=== PATIENT | female | born 1995 | race Caucasian/White ===

== ENCOUNTER 2020-01-19 21:49 | Observation (INO) | payer SELFPAY ==
[~2020-01-19] VITALS: Ht 167.6 cm; Wt 62.6 kg
--- NOTE | 2020-01-19 22:15 | NUR ---
ED Nurse Note: Recieved pt from home, here ith c/o severe abdominal pain x 3 days, pt hs hx of ovarian cancer and states she was informed by PMD to come to ED when pain got worse, pain rated at 10/10 and sharp, pt denies CP, SOB and also has mild nausea, no emesis, pt immediately gowned, urine colected and placed on cardiac monitoring, will resume care as ordered and continue to closely monitor.
[2020-01-19] MEDS ORDERED: HYDROmorphone 1mg/ml Carpuject IVP ONE (22:30)
[2020-01-19 22:45] LABS: APPEARANCE,URINE CLEAR; BILIRUBIN, URINE NEGATIVE (NEGATIVE); COLOR,URINE PALE YELLOW; GLUCOSE, URINE (UA) NEGATIVE (NEGATIVE); KETONES,URINE NEGATIVE (NEGATIVE); LEUKOCYTE ESTERASE ,URINE NEGATIVE (NEGATIVE); NITRITE,URINE NEGATIVE (NEGATIVE); PH,URINE 6.5 (4.5-8.0); PROTEIN,URINE NEGATIVE (NEGATIVE); UROBILINOGEN,URINE NORMAL MG/DL (0.0-1.0)
[2020-01-19 23:00] VITALS: BP 122/67
[2020-01-19 23:03] LABS: BASOPHILS % (AUTO) 1.4 % (0.0-2.0); EOSINOPHILS % (AUTO) 3.7 % (0.0-3.0); HEMATOCRIT 39.5 % (37.0-47.0); HEMOGLOBIN 13.4 G/DL (12.0-16.0); LYMPHOCYTES % (AUTO) 22.4 % (20.0-45.0); MEAN CORPUSCULAR VOLUME 88 FL (80-99); MONOCYTES % (AUTO) 7.3 % (1.0-10.0); NEUTROPHILS % (AUTO) 65.2 % (45.0-75.0); PLATELET COUNT 256 K/UL (150-450); RED BLOOD COUNT 4.51 M/UL (4.20-5.40); RED CELL DISTRIBUTION WIDTH 13.9 % (11.6-14.8); WHITE BLOOD COUNT 8.3 K/UL (4.8-10.8)
--- NOTE | 2020-01-19 23:11 | Emergency Room Report ---
History of Present Illness General Chief Complaint: Abdominal Pain Source: Patient Present Illness HPI 24-year-old female presents to ED for abdominal pain. States she is been having this pain for the last 3 weeks. Pain localized to right lower abdomen. 10 out of 10, sharp, nonradiating. States she has had on and off fevers. States she was having diarrhea as well. Was seen here previously for similar pain. History of ovarian cancer. Is currently being managed for that. Denies chest pain or shortness of breath. Denies cough congestion. No other aggravating relieving factors. Denies any other associated symptoms Allergies: Coded Allergies: KETOROLAC (Verified Allergy, Intermediate, Rash, 01/19/20) MORPHINE (Verified Allergy, Intermediate, Rash, 01/19/20) COVID-19 Screening Contact w/high risk pt: No Experienced COVID-19 symptoms?: Yes COVID-19 Testing performed ONION TIER: No Patient History Past Medical History: other - ovarian cancer Past Surgical History: none Pertinent Family History: none Social History: Denies: smoking, alcohol use, drug use Last Menstrual Period: 08/14 Now: No : 1 Para: 0 Immunizations: UTD Reviewed Nursing Documentation: PMH: Agreed; PSxH: Agreed Nursing Documentation-PMH Hx Cancer: Yes - ovarian, remission x 4 months Review of Systems All Other Systems: negative except mentioned in HPI Physical Exam Vital Signs Date Time Temp Pulse Resp B/P (MAP) Pulse Ox O2 Delivery O2 Flow Rate FiO2 01/19/20 21:51 Room Air Sp02 EP Interpretation: reviewed, normal General Appearance: no apparent distress, alert, GCS 15, non-toxic Head: normocephalic, atraumatic Eyes: bilateral eye normal inspection, bilateral eye PERRL ENT: hearing grossly normal, normal pharynx, no angioedema, normal voice Neck: full range of motion, supple/symm/no masses Respiratory: chest non-tender, lungs clear, normal breath sounds, speaking full sentences Cardiovascular #1: regular rate, rhythm, no edema Cardiovascular #2: 2+ carotid (R), 2+ carotid (L), 2+ radial (R), 2+ radial (L) , 2+ dorsalis pedis (R), 2+ dorsalis pedis (L) Gastrointestinal: normal bowel sounds, soft, non-distended, no guarding, no rebound, tenderness Rectal: deferred Genitourinary: normal inspection, no CVA tenderness Musculoskeletal: back normal, normal range of motion, gait/station normal, non- tender Neurologic: alert, motor strength/tone normal, oriented x3, sensory intact, responsive, speech normal Psychiatric: judgement/insight normal, memory normal, mood/affect normal, no suicidal/homicidal ideation Reflexes: 3+ bicep (R), 3+ bicep (L), 3+ tricep (R), 3+ tricep (L), 3+ knee (R) , 3+ knee (L) Skin: no rash Lymphatic: no adenopathy Medical Decision Making Diagnostic Impression: Primary Impression: Intractable abdominal pain ER Course Hospital Course 24 yo F presents with RLQ pain Differential diagnoses include: BPH, cystitis, pyelonephritis, kidney stone Clinical course Patient placed on stretcher. ore trimmer. After initial history and physical I ordered labs, IV fluids, UA, pain medication and CT scan Labs - no leukocytosis, Hb/Hct stable, electrolytes ok CT abdomen and pelvis - no acute findings noted When I reviewed the CT there is significant amount of fecal impaction in the right lower quadrant suggestive of her pain. I discussed this with the patient. Patient states she still has extreme pain. Patient given Dilaudid initially as she has allergies to Toradol and morphine. Patient states she has been seen here previously but no visits with the same name. However I did find patient Kayy Antoine ( 89) has the same story as this patient with history of ovarian cancer and seen at [facility]. Patient denies that this is her. Elina also has multple narcotics prescribed to her when reviewing CURES. Case discussed with Dr. Welch and he agreed to accept the patient to his service for further care and support I feel this is a highly complex case requiring extensive working including EKG/ Rhythm strip, Xray/CT/US, Blood/urine lab work, repeat exams while in ED, and administration of strong opiates/narcotics for pain control, admission to hospital or close patient follow up. Diagnosis - intractable abdominal pain Patient admitted to floor in serious condition Laboratory Tests Test 01/19/20 22:00 01/19/20 22:35 Urine Color Pale yellow Urine Appearance Clear Urine pH 6.5 (4.5-8.0) Urine Specific [place] 1.010 (1.005-1.035) Urine Protein Negative (NEGATIVE) Urine Glucose (UA) Negative (NEGATIVE) Urine Ketones Negative (NEGATIVE) Urine Blood Negative (NEGATIVE) Urine Nitrite Negative (NEGATIVE) Urine Bilirubin Negative (NEGATIVE) Urine Urobilinogen Normal MG/DL (0.0-1.0) Urine Leukocyte Esterase Negative (NEGATIVE) Urine HCG, Qualitative Negative (NEGATIVE) White Blood Count 8.3 K/UL (4.8-10.8) Red Blood Count 4.51 M/UL (4.20-5.40) Hemoglobin 13.4 G/DL (12.0-16.0) Hematocrit 39.5 % (37.0-47.0) Mean Corpuscular Volume 88 FL (80-99) Mean Corpuscular Hemoglobin 29.8 PG (27.0-31.0) Mean Corpuscular Hemoglobin Concent 34.0 G/DL (32.0-36.0) Red Cell Distribution Width 13.9 % (11.6-14.8) Platelet Count 256 K/UL (150-450) Mean Platelet Volume 5.0 FL (6.5-10.1) L Neutrophils (%) (Auto) 65.2 % (45.0-75.0) Lymphocytes (%) (Auto) 22.4 % (20.0-45.0) Monocytes (%) (Auto) 7.3 % (1.0-10.0) Eosinophils (%) (Auto) 3.7 % (0.0-3.0) H Basophils (%) (Auto) 1.4 % (0.0-2.0) Sodium Level 140 MMOL/L (136-145) Potassium Level 4.1 MMOL/L (3.5-5.1) Chloride Level 105 MMOL/L (98-107) Carbon Dioxide Level 23 MMOL/L (21-32) Anion Gap 12 mmol/L (5-15) Blood Urea Nitrogen 5 mg/dL (7-18) L Creatinine 0.8 MG/DL (0.55-1.30) Estimat Glomerular Filtration Rate > 60 mL/min (>60) Glucose Level 101 MG/DL (74-106) Calcium Level 9.1 MG/DL (8.5-10.1) Total Bilirubin 0.7 MG/DL (0.2-1.0) Aspartate Amino Transf (AST/SGOT) 24 U/L (15-37) Alanine Aminotransferase (ALT/SGPT) 31 U/L (12-78) Alkaline Phosphatase 79 U/L (46-116) Total Protein 7.7 G/DL (6.4-8.2) Albumin 4.3 G/DL (3.4-5.0) Globulin 3.4 g/dL Albumin/Globulin Ratio 1.3 (1.0-2.7) Lipase 117 U/L (73-393) CT/MRI/US Diagnostic Results CT/MRI/US Diagnostic Results : Imaging Test Ordered: CT A/P Impression Procedure: CT Abdomen Pelvis w/Contrast CT abdomen pelvis with contrast History: Right lower quadrant abdominal pain 04/03. Diarrhea. On and off fevers. History of ovarian cancer Technique: Axial contrast-enhanced CT of the abdomen and pelvis with coronal, sagittal reformatted images. CTDI is 3.8 mGy and DLP is 201.1 mGy-cm. Technique more: One or more of the following dose reduction techniques were used: automated exposure control, adjustment of the mA and/or kV according to patient size, use of iterative reconstruction technique. Comparison: None Findings: Lung bases: Normal Distal heart and esophagus: Normal Liver: No intrahepatic lesion or ductal dilation. Gallbladder: Contracted with mild gallbladder wall enhancement. Spleen: Enlarged Pancreas: Normal Adrenals: Normal Kidneys: Normal Aorta: Normal caliber. Lymph nodes: Small nonenlarged mid and right lower quadrant mesenteric nodes. Bowel: Scattered colonic stool. No inflammatory changes signs for obstruction. Appendix is not confidently seen. Nondistended left colon. Pelvis: Uterus and ovaries are unremarkable Bones: No lytic or blastic bony lesions. Impression: 1. Contracted gallbladder. 2. No acute intra-abdominal or pelvic finding. Last Vital Signs Date Time Temp Pulse Resp B/P (MAP) Pulse Ox O2 Delivery O2 Flow Rate FiO2 01/19/20 21:51 Room Air Status: improved Disposition: ADMITTED INPATIENT Condition: Serious Referrals: NON PHYSICIAN (PCP) Franklin Borges MD Jan 19, 2020 23:11
[2020-01-19 23:14] LABS: ANION GAP 12 mmol/L (5-15); BLOOD UREA NITROGEN 5 mg/dL (7-18); CALCIUM 9.1 MG/DL (8.5-10.1); CARBON DIOXIDE 23 MMOL/L (21-32); CHLORIDE 105 MMOL/L (98-107); CREATININE 0.8 MG/DL (0.55-1.30); POTASSIUM 4.1 MMOL/L (3.5-5.1); SODIUM 140 MMOL/L (136-145)
[2020-01-19] MEDS ORDERED: Omnipaque-300 100ml vial INJ PRN (23:15)
[2020-01-19 23:19] LABS: ALANINE AMINOTRANSFERASE 31 U/L (12-78); ALBUMIN 4.3 G/DL (3.4-5.0); ALBUMIN/GLOBULIN RATIO 1.3 (1.0-2.7); ALKALINE PHOSPHATASE 79 U/L (46-116); ASPARTATE AMINO TRANSFERASE 24 U/L (15-37); BILIRUBIN,TOTAL 0.7 MG/DL (0.2-1.0)
--- NOTE | 2020-01-20 00:30 | NUR ---
ED Nurse Note: Pt continues to rest quietly, meds given for pain slightly effective, pain level decreased to 6/10, nausea remains, v/s stable, IV fluids completed, pt asking for more pain meds, MD informed, no new orders given, will continue to monitor.
--- NOTE | 2020-01-20 00:58 | Diagnostic Imaging Report ---
CT abdomen pelvis with contrast History: Right lower quadrant abdominal pain 10/10. Diarrhea. On and off fevers. History of ovarian cancer Technique: Axial contrast-enhanced CT of the abdomen and pelvis with coronal, sagittal reformatted images. CTDI is 3.8 mGy and DLP is 201.1 mGy-cm. Technique more: One or more of the following dose reduction techniques were used: automated exposure control, adjustment of the mA and/or kV according to patient size, use of iterative reconstruction technique. Comparison: None Findings: Lung bases: Normal Distal heart and esophagus: Normal Liver: No intrahepatic lesion or ductal dilation. Gallbladder: Contracted with mild gallbladder wall enhancement. Spleen: Enlarged Pancreas: Normal Adrenals: Normal Kidneys: Normal Aorta: Normal caliber. Lymph nodes: Small nonenlarged mid and right lower quadrant mesenteric nodes. Bowel: Scattered colonic stool. No inflammatory changes signs for obstruction. Appendix is not confidently seen. Nondistended left colon. Pelvis: Uterus and ovaries are unremarkable Bones: No lytic or blastic bony lesions. Impression: 1. Contracted gallbladder. 2. No acute intra-abdominal or pelvic finding.
[2020-01-20 01:15] VITALS: BP 126/66
[2020-01-20] MEDS ORDERED: Docusate 100mg cap ORAL ONE (01:30)
[2020-01-20] MEDS ORDERED: Magnesium Citrate Liq Btl ORAL ONE (01:30)
--- NOTE | 2020-01-20 01:40 | NUR ---
ED Nurse Note: Pt remains on cardiac monitoirng, v/s stable, pt crying stating her pain is at 10/10 in lower abd again, MD at bedside, no new pain med orders given, pt constipated and meds for consipation given, pt is to be admitted, will continue to closely monitor and perpere for admission to hospital.
[2020-01-20] MEDS ORDERED: NS 500ML ONE (01:48)
[2020-01-20] MEDS ORDERED: Hydromorphone 0.5mg/0.5ml inj IVP PRN (02:30)
--- NOTE | 2020-01-20 02:40 | NUR ---
ED Nurse Note: Pt has room for admission, report called to floor nurse, belongings list and swabs completed, med rec also, pt is awake and alert, continues to c/o severe pain at 10/10, v/s stable, IV site intact and patent, pt being taken to floor unit via gurney with ER-Tech, pt ahs all belongings, nad noted during pt transport to unit.
[2020-01-20] MEDS ORDERED: OXYCODONE HCL15 M1 ORAL (02:41)
[2020-01-20] MEDS ORDERED: LAMICTAL150 MG ORAL (02:41)
[2020-01-20] MEDS ORDERED: ATIVAN2 MG ORAL (02:41)
[2020-01-20] MEDS ORDERED: ZOFRAN ODT8 MG ORAL (02:41)
--- NOTE | 2020-01-20 03:00 | NUR ---
NURSE NOTES: Patient arrived the unit. Received report from Daniella PARR. Patient is a/ox4, and ambulatory. Belongings checked with patient and signed by patient. IV site is intact and patent. Skin is intact and clean. Patient c/o 8/10 on abdomen and will give medication as ordered. Bed is in alarm, locked, and lowest position. Call light within reach. Will continue to monitor.
[2020-01-20 04:00] VITALS: BP 117/80
--- NOTE | 2020-01-20 06:10 | NUR ---
NURSE NOTES: Patient c/o abdominal pain, 02/01 and n/v. Called to Dr. Welch. Dr. Welch said call to Dr. Ferrer for order. Will follow and carry out.
--- NOTE | 2020-01-20 06:41 | NUR ---
NURSE NOTES: Called to Dr. Ferrer regarding prn pain and N/V medications. Will continue to follow.
--- NOTE | 2020-01-20 07:30 | NUR ---
NURSE NOTES: WALKING ROUNDS DONE WITH NIGHT RN. PATIENT ASLEEP IN BED. NO RESPIRATORY DISTRESS NOTED. BED IN LOW AND LOCKED POSITION. CALL LIGHT WITHIN REACH.
--- NOTE | 2020-01-20 07:35 | NUR ---
HAND-OFF: Report given to Kinjal PARR. Patient in stable condition.
[2020-01-20 08:00] VITALS: BP 109/78
[2020-01-20] MEDS ORDERED: oxyCODONE 15mg IR tab ORAL PRN (10:15)
[2020-01-20] MEDS: HYDROmorphone 1mg/ml Carpuject IVP PRN ×4 (10:45→22:42)
[2020-01-20] MEDS: LaMICtal 150mg tab ORAL SCH (11:18)
[2020-01-20 11:40] VITALS: BP 114/72
[2020-01-20] MEDS: LORazepam 1mg tab ORAL PRN ×3 (12:07→23:42)
--- NOTE | 2020-01-20 14:32 | NUR ---
P.T Notes: P.T evaluation completed. Based on P.T evaluation , patient is independent in all areas of ADL/functional mobility and gait/locomotion. Pt currently functioning at baseline and does not require skilled P.T services at this time. [facility] P.T services. Thank you for this referral.
--- NOTE | 2020-01-20 15:15 | History and Physical Report ---
DATE OF ADMISSION: 01/20/2020 DATE AND TIME SEEN: 01/20/2020 at 1 p.m. CONSULTANTS: 1. Jama Ferrer MD. 2. Rishabh Albarado MD. 3. Lavinia Robles MD. 4. Shakir North MD. CHIEF COMPLAINT: Abdominal pain, nausea, vomiting, history of ovarian cancer, fecal impaction. BRIEF HISTORY: This is a 24-year-old female with history of ovarian cancer status post chemo and radiation apparently has couple of days of increased abdominal pain and constipation, came to [facility], diagnosed with the above, admitted to medical floor. Currently, 8/10 abdominal pain, slight nausea. No complaint. REVIEW OF SYSTEMS: No chest pain. Slight short of breath. Slight nausea, vomiting. No diarrhea. PAST MEDICAL HISTORY: Includes ovarian cancer, fecal impaction, abdominal pain, nausea, vomiting. PAST SURGICAL HISTORY: Pelvic lymph node dissection. MEDICATIONS: Include famotidine, lorazepam, Zofran, oxycodone, hydromorphone, magnesium. ALLERGIES: Toradol and morphine. SOCIAL HISTORY: No smoking. Positive alcohol. No intravenous drug abuse. FAMILY HISTORY: Noncontributory. PHYSICAL EXAMINATION: GENERAL: Calm in bed, oriented x3. Slight distress secondary to abdominal pain. VITAL SIGNS: Temperature 97 degrees, pulse 72, respirations 20, blood pressure 114/72. CARDIOVASCULAR: No murmur. LUNGS: Distant. ABDOMEN: Bowel sounds positive. Slightly tender. Slight guarding. No rigidity. No rebound. EXTREMITIES: No cyanosis, clubbing, or edema. NEUROLOGIC: Patient moves all extremities, slightly weak. LABORATORY DATA: Labs at this time show CBC is normal. BMP show BUN 5, otherwise normal. Urinalysis is negative. ASSESSMENT: 1. Abdominal pain. 2. Nausea, vomiting. 3. Ovarian cancer history. 4. Fecal impaction. PLAN: 1. Laxative as needed. 2. Zofran and pain control. 3. IV fluids. 4. Dietary followup. 5. Discharge plan if cleared by team. Howard Welch D.O. DR: ZARI JOB#: [id number] CC:
[2020-01-20 15:46] VITALS: BP 119/78
--- NOTE | 2020-01-20 15:47 | NUR ---
CASE MANAGEMENT: INITIAL REVIEW 24YR OLD FEMALE FROM HOME CC: RECURRENT ABDOMINAL PAIN HX: OVARIAN CANCER SI:INTRACTABLE ABDOMINAL PAIN WITH N/V. OVARIAN CA . 98.3 94 18 122/67 99% ON RA IS:IVF NS BOLUS X1 IV ZOFRAN C1 IV PEPCID XQ IV DILAUDID X1 COLACE PO X1 CITRATE OF MAGNESIA PO X1 CT ABD/PEL W/ CONTRAST - Contracted gallbladder. No acute intra-abdominal or pelvic finding. \: 3E MED SURG UNIT DCP: HOME WHEN STABLE PLAN: CONTROL PAIN ADMIT TO OBSERVATION
--- NOTE | 2020-01-20 16:04 | NUR ---
CASE MANAGEMENT: NOTE CM FAXED ADMIT TO [facility] ORDER TO ADMITTING DEPARTMENT
--- NOTE | 2020-01-20 18:22 | NUR ---
NURSE NOTES: PATIENT REMAINS STABLE . REQUESTING PAIN MEDS WHEN PRNS ARE DUE. NO N/V NOTED. VSS.AFEBRILE. BED IN LOW AND LOCKED POSITION. PLACED CALL TO UPDATE DR. BURR WELL DIET ORDER POSSIBLY PER PT. REQUEST.HAD 2 BMS AFTER CONSUMING LAXATIVE GIVEN EARLY AM BY NIGHT RN. PATIENT KEPT INFORMED. BED IN LOW AND LOCKED POSITION. CALL LIGHT WITHIN REACH.
--- NOTE | 2020-01-20 19:30 | NUR ---
NURSE NOTES: Received report from KESHAV Garvin. Pt is awake, lying semi-brody's; comfortably resting. No signs of acute distress noted. Pt reports pain of 8/10 in the abdomen area. Pt states she would like to get a "higher dose of dilaudid" as the "pain comes back after 1 hour". AOx4; able to make needs known. Checked IV site; patent and flushed. No erythema, bleeding or infiltration noted. Pt oriented with the room. Bed at lowest position. Brakes on. Siderails up x2. Call light within reach. Will continue to monitor.
--- NOTE | 2020-01-20 19:50 | NUR ---
4HAND-OFF: Report given to TAWANDA MILES RN.
--- NOTE | 2020-01-20 19:51 | NUR ---
HAND-OFF: Report given to SID QUIÑONEZ RN.
[2020-01-20 20:00] VITALS: BP 111/72
[2020-01-21] VITALS: BP 108/70
[2020-01-21] MEDS: HYDROmorphone 1mg/ml Carpuject IVP PRN ×2 (02:47→06:44)
[2020-01-21 04:00] VITALS: BP 110/74
[2020-01-21] MEDS: LORazepam 1mg tab ORAL PRN ×2 (05:42→11:47)
[2020-01-21 05:59] LABS: BASOPHILS % (AUTO) 1.2 % (0.0-2.0); EOSINOPHILS % (AUTO) 5.6 % (0.0-3.0); HEMATOCRIT 40.3 % (37.0-47.0); HEMOGLOBIN 13.3 G/DL (12.0-16.0); LYMPHOCYTES % (AUTO) 31.6 % (20.0-45.0); MEAN CORPUSCULAR VOLUME 88 FL (80-99); NEUTROPHILS % (AUTO) 53.6 % (45.0-75.0); PLATELET COUNT 250 K/UL (150-450); RED BLOOD COUNT 4.56 M/UL (4.20-5.40); RED CELL DISTRIBUTION WIDTH 13.1 % (11.6-14.8); WHITE BLOOD COUNT 6.3 K/UL (4.8-10.8)
[2020-01-21 06:03] LABS: ANION GAP 8 mmol/L (5-15); BLOOD UREA NITROGEN 11 mg/dL (7-18); CALCIUM 9.2 MG/DL (8.5-10.1); CARBON DIOXIDE 30 MMOL/L (21-32); CHLORIDE 120 MMOL/L (98-107); CREATININE 0.9 MG/DL (0.55-1.30); POTASSIUM 4.4 MMOL/L (3.5-5.1); SODIUM 158 MMOL/L (136-145)
--- NOTE | 2020-01-21 07:37 | NUR ---
HAND-OFF: Report given to KESHAV Burns. Pt is sleeping and in stable condition. Plan of care endorsed.
--- NOTE | 2020-01-21 07:43 | NUR ---
NURSE NOTES: Received report from KESHAV Burr, Patient seen in bed, AAOX4, ambulatory, and on room air. IV site patent and intact. No complaints of pain or SOB noted at this time. NPO diet maintained. RN instructed patient to use call light if felt dizzy or weak before ambulating. Bed locked and placed in lowest position. Call light within reach. Will continue to monitor
[2020-01-21 08:00] VITALS: BP 111/73
[2020-01-21] MEDS: LaMICtal 150mg tab ORAL SCH (08:10)
--- NOTE | 2020-01-21 08:51 | General Progress Note ---
Assessment/Plan Problem List: (1) Fecal impaction ICD Codes: K56.41 - Fecal impaction SNOMED: 78449832 (2) Ovarian cancer ICD Codes: C56.9 - Malignant neoplasm of unspecified ovary SNOMED: 929277019 (3) Intractable abdominal pain ICD Codes: R10.9 - Unspecified abdominal pain SNOMED: 65180523 Status: stable, progressing Assessment/Plan: pt diet cbc bmp am dc if gi clears Subjective Constitutional: Reports: weakness Allergies: Coded Allergies: KETOROLAC (Verified Allergy, Intermediate, Rash, 01/19/20) MORPHINE (Verified Allergy, Intermediate, Rash, 01/19/20) All Systems: reviewed and negative except above Subjective sleepy calm Objective Last 24 Hour Vital Signs Date Time Temp Pulse Resp B/P (MAP) Pulse Ox O2 Delivery O2 Flow Rate FiO2 01/21/20 08:00 98.1 85 18 111/73 (86) 98 01/21/20 04:00 97.6 83 18 110/74 (86) 96 01/21/20 00:00 97.8 84 20 108/70 (83) 98 01/20/20 21:00 Room Air 01/20/20 20:00 98.0 98 20 111/72 (85) 98 01/20/20 19:10 98.2 01/20/20 15:46 98.2 84 20 119/78 (92) 98 01/20/20 11:40 97.5 72 20 114/72 (86) 99 01/20/20 09:00 Room Air Laboratory Tests 01/21/20 05:25: White Blood Count 6.3, Red Blood Count 4.56, Hemoglobin 13.3, Hematocrit 40.3, Mean Corpuscular Volume 88, Mean Corpuscular Hemoglobin 29.1, Mean Corpuscular Hemoglobin Concent 32.9, Red Cell Distribution Width 13.1, Platelet Count 250, Mean Platelet Volume 5.4L, Neutrophils (%) (Auto) 53.6, Lymphocytes (%) (Auto) 31.6, Monocytes (%) (Auto) 8.0, Eosinophils (%) (Auto) 5.6H, Basophils (%) (Auto ) 1.2, Sodium Level 158H, Potassium Level 4.4, Chloride Level 120H, Carbon Dioxide Level 30, Anion Gap 8, Blood Urea Nitrogen 11, Creatinine 0.9, Estimat Glomerular Filtration Rate > 60, Glucose Level 89, Calcium Level 9.2 Height (Feet): 5 Height (Inches): 6.00 Weight (Pounds): 138 General Appearance: lethargic EENT: normal ENT inspection Neck: normal alignment Cardiovascular: normal peripheral pulses, normal rate, regular rhythm Respiratory/Chest: chest wall non-tender, lungs clear, normal breath sounds Abdomen: normal bowel sounds, soft Extremities: normal inspection Edema: no edema noted Arm (L), no edema noted Arm (R), no edema noted Leg (L), no edema noted Leg (R), no edema noted Pedal (L), no edema noted Pedal (R), no edema noted Generalized Neurologic: motor weakness Skin: normal pigmentation, warm/dry Howard Welch DO Jan 21, 2020 08:50
[2020-01-21] MEDS ORDERED: HYDROcodone/Acetamin 10/325 tab ORAL PRN (10:00)
--- NOTE | 2020-01-21 10:01 | Consultation ---
History of Present Illness General Date patient seen: Jan 21, 2020 Chief Complaint: Present Illness Allergies: Coded Allergies: KETOROLAC (Verified Allergy, Intermediate, Rash, 01/19/20) MORPHINE (Verified Allergy, Intermediate, Rash, 01/19/20) Medication History Scheduled Lamotrigine* (Lamictal*), 300 MG ORAL DAILY, (Reported) Lorazepam* (Ativan*), 2 MG ORAL THREE TIMES A DAY, (Reported) Scheduled PRN Ondansetron Odt* (Zofran Odt*), 4 MG ORAL Q6H PRN for Nausea & Vomiting, ( Reported) Oxycodone Hcl* (Oxycodone Hcl*), 30 MG ORAL Q6H PRN for For Pain, (Reported) Patient History Healthcare decision maker Resuscitation status Advanced Directive on File Physical Exam Last 24 Hour Vital Signs Date Time Temp Pulse Resp B/P (MAP) Pulse Ox O2 Delivery O2 Flow Rate FiO2 01/21/20 09:00 Room Air 01/21/20 08:00 98.1 85 18 111/73 (86) 98 01/21/20 04:00 97.6 83 18 110/74 (86) 96 01/21/20 00:00 97.8 84 20 108/70 (83) 98 01/20/20 21:00 Room Air 01/20/20 20:00 98.0 98 20 111/72 (85) 98 01/20/20 19:10 98.2 01/20/20 15:46 98.2 84 20 119/78 (92) 98 01/20/20 11:40 97.5 72 20 114/72 (86) 99 Laboratory Tests Test 01/21/20 05:25 White Blood Count 6.3 K/UL (4.8-10.8) Red Blood Count 4.56 M/UL (4.20-5.40) Hemoglobin 13.3 G/DL (12.0-16.0) Hematocrit 40.3 % (37.0-47.0) Mean Corpuscular Volume 88 FL (80-99) Mean Corpuscular Hemoglobin 29.1 PG (27.0-31.0) Mean Corpuscular Hemoglobin Concent 32.9 G/DL (32.0-36.0) Red Cell Distribution Width 13.1 % (11.6-14.8) Platelet Count 250 K/UL (150-450) Mean Platelet Volume 5.4 FL (6.5-10.1) L Neutrophils (%) (Auto) 53.6 % (45.0-75.0) Lymphocytes (%) (Auto) 31.6 % (20.0-45.0) Monocytes (%) (Auto) 8.0 % (1.0-10.0) Eosinophils (%) (Auto) 5.6 % (0.0-3.0) H Basophils (%) (Auto) 1.2 % (0.0-2.0) Sodium Level 158 MMOL/L (136-145) H Potassium Level 4.4 MMOL/L (3.5-5.1) Chloride Level 120 MMOL/L (98-107) H Carbon Dioxide Level 30 MMOL/L (21-32) Anion Gap 8 mmol/L (5-15) Blood Urea Nitrogen 11 mg/dL (7-18) Creatinine 0.9 MG/DL (0.55-1.30) Estimat Glomerular Filtration Rate > 60 mL/min (>60) Glucose Level 89 MG/DL (74-106) Calcium Level 9.2 MG/DL (8.5-10.1) Height (Feet): 5 Height (Inches): 6.00 Weight (Pounds): 138 Medications Current Medications Medications (Trade) Dose Ordered Sig/Phil Route PRN Reason Start Time Stop Time Status Last Admin Dose Admin Hydromorphone HCl (Dilaudid) 1 mg Q4H PRN IVP Severe Breakthru Pain (>7) 01/20/20 10:15 01/27/20 10:14 01/21/20 06:44 Iohexol (OMNIPAQUE-300 100ml) 100 ml NOW PRN INJ Radiology Procedure 01/19/20 23:15 01/21/20 23:15 Lamotrigine (LaMICtal) 300 mg DAILY ORAL 01/20/20 11:00 02/19/20 10:59 01/21/20 08:10 Lorazepam (Ativan) 1 mg Q4H PRN ORAL For Anxiety 01/20/20 10:45 01/27/20 10:44 01/21/20 05:42 Ondansetron HCl (Zofran ODT) 4 mg Q6H PRN ORAL Nausea & Vomiting 01/20/20 10:30 02/19/20 10:29 Ondansetron HCl (Zofran) 4 mg Q6H PRN IVP Nausea & Vomiting 01/20/20 10:45 02/19/20 10:44 01/21/20 05:42 Assessment/Plan Assessment/Plan: (1) Abdominal pain (2) Neuropathic pain (3) H/O Ovarian Cancer seen and dictated Teddy Clay Jan 21, 2020 10:01
--- NOTE | 2020-01-21 11:12 | NUR ---
NURSE NOTES: RN notified of discharge order, patient stated that she doesnt feel comfortable being discharge in her current condition with the amount of pain shes experiencing. RN gave gabapentin and [place] as ordered per MD. Patient states that she wants to talk to case management. RN called and made aware case management and left a message regarding issue
--- NOTE | 2020-01-21 11:22 | Consultation ---
History of Present Illness General Chief Complaint: Abdominal Pain Present Illness Allergies: Coded Allergies: KETOROLAC (Verified Allergy, Intermediate, Rash, 01/19/20) MORPHINE (Verified Allergy, Intermediate, Rash, 01/19/20) Medication History Scheduled Lamotrigine* (Lamictal*), 300 MG ORAL DAILY, (Reported) Lorazepam* (Ativan*), 2 MG ORAL THREE TIMES A DAY, (Reported) Scheduled PRN Ondansetron Odt* (Zofran Odt*), 4 MG ORAL Q6H PRN for Nausea & Vomiting, ( Reported) Oxycodone Hcl* (Oxycodone Hcl*), 30 MG ORAL Q6H PRN for For Pain, (Reported) Patient History Healthcare decision maker Resuscitation status Advanced Directive on File Physical Exam Last 24 Hour Vital Signs Date Time Temp Pulse Resp B/P (MAP) Pulse Ox O2 Delivery O2 Flow Rate FiO2 01/21/20 09:00 Room Air 01/21/20 08:00 98.1 85 18 111/73 (86) 98 01/21/20 04:00 97.6 83 18 110/74 (86) 96 01/21/20 00:00 97.8 84 20 108/70 (83) 98 01/20/20 21:00 Room Air 01/20/20 20:00 98.0 98 20 111/72 (85) 98 01/20/20 19:10 98.2 01/20/20 15:46 98.2 84 20 119/78 (92) 98 01/20/20 11:40 97.5 72 20 114/72 (86) 99 Laboratory Tests Test 01/21/20 05:25 White Blood Count 6.3 K/UL (4.8-10.8) Red Blood Count 4.56 M/UL (4.20-5.40) Hemoglobin 13.3 G/DL (12.0-16.0) Hematocrit 40.3 % (37.0-47.0) Mean Corpuscular Volume 88 FL (80-99) Mean Corpuscular Hemoglobin 29.1 PG (27.0-31.0) Mean Corpuscular Hemoglobin Concent 32.9 G/DL (32.0-36.0) Red Cell Distribution Width 13.1 % (11.6-14.8) Platelet Count 250 K/UL (150-450) Mean Platelet Volume 5.4 FL (6.5-10.1) L Neutrophils (%) (Auto) 53.6 % (45.0-75.0) Lymphocytes (%) (Auto) 31.6 % (20.0-45.0) Monocytes (%) (Auto) 8.0 % (1.0-10.0) Eosinophils (%) (Auto) 5.6 % (0.0-3.0) H Basophils (%) (Auto) 1.2 % (0.0-2.0) Sodium Level 158 MMOL/L (136-145) H Potassium Level 4.4 MMOL/L (3.5-5.1) Chloride Level 120 MMOL/L (98-107) H Carbon Dioxide Level 30 MMOL/L (21-32) Anion Gap 8 mmol/L (5-15) Blood Urea Nitrogen 11 mg/dL (7-18) Creatinine 0.9 MG/DL (0.55-1.30) Estimat Glomerular Filtration Rate > 60 mL/min (>60) Glucose Level 89 MG/DL (74-106) Calcium Level 9.2 MG/DL (8.5-10.1) Height (Feet): 5 Height (Inches): 6.00 Weight (Pounds): 138 Medications Current Medications Medications (Trade) Dose Ordered Sig/Phil Route PRN Reason Start Time Stop Time Status Last Admin Dose Admin Acetaminophen/ Hydrocodone Bitart ([place] 10/325) 1 tab Q4H PRN ORAL Severe Pain (Pain Scale 7-10) 01/21/20 10:00 01/28/20 09:59 01/21/20 10:51 Gabapentin (Neurontin) 300 mg THREE TIMES A DAY ORAL 01/21/20 10:00 02/20/20 09:59 01/21/20 10:50 Iohexol (OMNIPAQUE-300 100ml) 100 ml NOW PRN INJ Radiology Procedure 01/19/20 23:15 01/21/20 23:15 Lamotrigine (LaMICtal) 300 mg DAILY ORAL 01/20/20 11:00 02/19/20 10:59 01/21/20 08:10 Lorazepam (Ativan) 1 mg Q4H PRN ORAL For Anxiety 01/20/20 10:45 01/27/20 10:44 01/21/20 05:42 Ondansetron HCl (Zofran ODT) 4 mg Q6H PRN ORAL Nausea & Vomiting 01/20/20 10:30 02/19/20 10:29 Ondansetron HCl (Zofran) 4 mg Q6H PRN IVP Nausea & Vomiting 01/20/20 10:45 02/19/20 10:44 01/21/20 05:42 Assessment/Plan Assessment/Plan: Oncology Consultation REQ MD: Howard Welch [facility] 01/21/2020 RFC: Ovarian cancer ID 24-year-old female presents to ED for abdominal pain. States she is been having this pain for the last 3 weeks. Pain localized to right lower abdomen. 10 out of 10, sharp, nonradiating. States she has had on and off fevers. States she was having diarrhea as well. Was seen here previously for similar pain. History of ovarian cancer. Is currently being managed for that. Denies chest pain or shortness of breath. Denies cough congestion. No other aggravating relieving factors. Denies any other associated symptoms I have seen her before, may have registered under a different name. Allergies: KETOROLAC (Verified Allergy, Intermediate, Rash, 01/19/20) MORPHINE (Verified Allergy, Intermediate, Rash, 01/19/20) COVID-19 Screening Contact w/high risk pt: No Experienced COVID-19 symptoms?: Yes COVID-19 Testing performed ASSEMBLER TYPE BAR AND SEGMENT: No Patient History Past Medical History: other - ovarian cancer Past Surgical History: none Pertinent Family History: none Social History: Denies: smoking, alcohol use, drug use Last Menstrual Period: 08/14 Now: No : 1 Para: 0 Immunizations: UTD Reviewed Nursing Documentation: PMH: Agreed; PSxH: Agreed Nursing Documentation-PMH Hx Cancer: Yes - ovarian, remission x 4 months ROS (review of systems): Constitutional: No fever, no chills, no night sweats, no fatigue Skin: No rashes, lumps, itchiness, dryness HEENT: No BILLINGS, ear ache, visual changes, double vision, nosebleeds Breasts: No lumps, pain, discharge Pulmonary: No cough, sputum, shortness of breath, coughing up blood Cardiovascular: No chest pain, tightness, palpitations, syncope, PND GI: + abdominal pain noted few weeks, : No dysuria, frequency, urgency, urinary incontinence, foamy urine Musculoskeletal: No joint swelling or muscle pain, trauma, back pain Neurologic: No dizziness, fainting, seizures, changes in smell or taste Psychiatric: No nervousness, stress, or depression, anxiety, hallucinations Endocrine: No weight change, heat or cold intolerance, tremor, insomnia Physical Exam: Vitals: reviewed General: NAD HEENT: nc, at Neck: supple Chest: clear breath sounds bilaterally Cardiovascular: RRR, no s3, s4 Abdomen: soft, nontender, nd Extremities: no cce, normal range of motion Neuro: alert and oriented Labs reviewed Imaging noted Assessment and Recs # Ovarian cancer s/p resection and chemo and has been in remission last 4 months per patient --> obtain outside records -> continue to f/u outpatient eval/COH --> ca 125 as needed, order # Right lower quadrant pain, ddx bph, cystitis, pyelo, kidney stone --> on pain meds, per PM --> imaigng has been noted, ct no acute finding --> ca 125 ordered # Abdominal pain/fecal impaction --> colace/senna prn # Dvt ppx scds The timing of this note does not necessarily reflect the time of the patient was seen. Greatly appreciate consultation. Corey North MD Jan 21, 2020 11:22
[2020-01-21 12:00] VITALS: BP 128/90
--- NOTE | 2020-01-21 13:02 | NUR ---
NURSE NOTES: Patient vomited 200cc of what seems to be apple sauce and grape juice. RN gave Zofran. Patient continues to have complaints of abdominal pain and states she doesnt want to be discharge
--- NOTE | 2020-01-21 14:12 | General Progress Note ---
Assessment/Plan Status: stable, progressing Assessment/Plan: abd pain neg CT and labs ? psych and pain meds seeking on diet ok to dc GI stand point Subjective ROS Limited/Unobtainable: Yes Allergies: Coded Allergies: KETOROLAC (Verified Allergy, Intermediate, Rash, 01/19/20) MORPHINE (Verified Allergy, Intermediate, Rash, 01/19/20) Objective Last 24 Hour Vital Signs Date Time Temp Pulse Resp B/P (MAP) Pulse Ox O2 Delivery O2 Flow Rate FiO2 01/21/20 12:00 98.0 100 15 128/90 (103) 98 01/21/20 09:00 Room Air 01/21/20 08:00 98.1 85 18 111/73 (86) 98 01/21/20 04:00 97.6 83 18 110/74 (86) 96 01/21/20 00:00 97.8 84 20 108/70 (83) 98 01/20/20 21:00 Room Air 01/20/20 20:00 98.0 98 20 111/72 (85) 98 01/20/20 19:10 98.2 01/20/20 15:46 98.2 84 20 119/78 (92) 98 Laboratory Tests 01/21/20 05:25: White Blood Count 6.3, Red Blood Count 4.56, Hemoglobin 13.3, Hematocrit 40.3, Mean Corpuscular Volume 88, Mean Corpuscular Hemoglobin 29.1, Mean Corpuscular Hemoglobin Concent 32.9, Red Cell Distribution Width 13.1, Platelet Count 250, Mean Platelet Volume 5.4L, Neutrophils (%) (Auto) 53.6, Lymphocytes (%) (Auto) 31.6, Monocytes (%) (Auto) 8.0, Eosinophils (%) (Auto) 5.6H, Basophils (%) (Auto ) 1.2, Sodium Level 158H, Potassium Level 4.4, Chloride Level 120H, Carbon Dioxide Level 30, Anion Gap 8, Blood Urea Nitrogen 11, Creatinine 0.9, Estimat Glomerular Filtration Rate > 60, Glucose Level 89, Calcium Level 9.2, CA 125 Antigen [Pending] Height (Feet): 5 Height (Inches): 6.00 Weight (Pounds): 138 General Appearance: alert EENT: normal ENT inspection Neck: normal inspection Cardiovascular: normal rate Respiratory/Chest: lungs clear Abdomen: hypoactive bowel sounds Extremities: non-tender Jama Ferrer MD Jan 21, 2020 14:12
--- NOTE | 2020-01-21 15:38 | NUR ---
NURSE NOTES: Patient was discharged in stable condition. Patient belonging was checked and all accounted for, VS stable. Patient was escorted out by RN via wheel chair and was picked up by a lyft that the patient booked. Patient states that shes going home. All papers were signed.
--- NOTE | 2020-01-21 19:45 | Consultation ---
DATE OF CONSULTATION: 01/21/2020 PAIN MANAGEMENT CONSULTATION CONSULTING PHYSICIAN: Lavinia Robles M.D. REFERRING PHYSICIAN: Howard Welch D.O. PHYSICIAN HAND FORMER HELPER: Mian Maldonado CHIEF COMPLAINT: Abdominal pain. HISTORY OF PRESENT ILLNESS: This is a 24-year-old female who is being seen on the Med/Surg floor of [facility] for initial pain management consultation. The patient was admitted under the care of Dr. Welch due to abdominal pain which has been present for the past two weeks, it is acute and constant, rating 10/10, describing pain as a cramping sharp pain, increasing with standing and pressure and decreasing with medication. Reports that she had been positive for ovarian cancer and now in remission for the past four to eight months, status post surgery and chemoradiation and reports that she has been going to [facility] where she gets [place] as needed for pain. Her oncologist is Dr. Adams at [facility]. She was admitted to the hospital with fecal impaction, now had two bowel movements and is feeling better, has been on Dilaudid 1 mg IV every 4 hours as needed for severe pain. She also was started on oxycodone 30 mg which was discontinued. At this time, we were consulted so that the patient would have adequate pain control while here in the hospital. PAST MEDICAL HISTORY: Ovarian cancer, asthma. PAST SURGICAL HISTORY: Pelvic lymph node dissection. SOCIAL HISTORY: Drinks alcohol occasionally, smokes marijuana. ALLERGIES: Toradol and morphine. REVIEW OF SYSTEMS: Denies rash, fever, chills, sweating, dizziness, drowsiness, blurred vision, sore throat, change in weight. No shortness of breath, chest pain. No nausea, vomiting, diarrhea, or blood in the stool or urine. No dysuria. PHYSICAL EXAMINATION: GENERAL: Alert, awake, and oriented. VITAL SIGNS: Blood pressure 111/73, heart rate 85, oxygen saturation is 98%, respiratory rate 18, temperature is 98.5 degrees Fahrenheit. HEENT: PERRLA. NECK: Range of motion is full in all directions. No tenderness to paracervical muscles. No adenopathy. LUNGS: Clear to auscultation bilaterally. HEART: Regular. ABDOMEN: Tenderness to palpation. BACK: Range of motion is full in flexion and extension. EXTREMITIES: Upper and lower extremity range of motion is decreased due to the patient's condition. No cyanosis. No clubbing. No edema. Sensory is intact. Reflexes are not obtainable. No adenopathy. ASSESSMENT AND PLAN: This is a 24-year-old female with abdominal pain, history of ovarian cancer and neuropathic pain. The patient will be discontinued off the Dilaudid, started on [place] 10/325 one tablet every four hours as needed for severe pain, Neurontin 300 mg tablet three times a day. The patient was discussed with Dr. Robles and Dr. Robles concurred. We will follow the patient. Thank you very much for the courtesy of this consultation Lavinia Robles M.D. RAMY Maldonado DR: Ellie JOB#: [id number] CC: DIONNE
== END 2020-01-21 15:30 | disposition home or self-care (01) ==
LOC: EMR 22:41 → 3E 01-20 01:47 → INTOOBSV 01-20 01:47 → EDBEDREQ 01-20 02:08
DX: R10.31 Right lower quadrant pain (principal); C56.9 Malignant neoplasm of unspecified ovary; R19.7 Diarrhea, unspecified; R11.2 Nausea with vomiting, unspecified; K56.41 Fecal impaction; M79.2 Neuralgia and neuritis, unspecified; Z88.6 Allergy status to analgesic agent; Z79.899 Other long term (current) drug therapy
CPT/HCPCS: 36415; 74177; 80048; 80053; 81003; 81025; 83690; 85025; 86304; 87081; 96361; 96374; 96375; 97161; 99285; G0378; J1170; J2405; J7030; J7040; Q9967; S0028; U0002